=== PATIENT | female | born 1995 | race Caucasian/White ===

== ENCOUNTER 2018-05-22 16:19 | Inpatient (IN) | payer OTHER ==
--- NOTE | 2018-05-22 09:52 | PDOC.LDHP ---
Labor and Delivery H&P Chief complaint: scheduled induction HPI: 23 yo @ 40w2d by 10 week CRL who presents for EIOL. Rh neg, Tobacco use in early , Antepartum course otherwise benign. Current gestational age (weeks): 40 Due date: 05/20/18 Dating criteria: first trimester ultrasound Grav: 5 Para: 2 OB History Details: 2 term SVDs, 2 SABs Current complications: none Abnormal US findings: Yes Past Medical History: Denies Current medications: pre-ricarda vitamins Previous surgical history: none Allergies/Adverse Reactions: Allergies Allergy/AdvReac Type Severity Reaction Status Date / Time No Known Allergies Allergy Verified 05/22/18 23:28 Social history: none - Physical Exam Vital signs reviewed and normal: yes General: NAD Heart: RRR Lungs: nonlabored breathing Abdomen: gravid Extremeties: no edema FHT: category 1 (130s, mod patsy, +accels, no decels) [place] contractions every: q3-5 min - Vaginal Exam cm dilated: 3 (cephalic, AROM clear ) Effacement: 50% Station: -2 - OB Labs Blood type: A RH: negative Antibody Screen: negative HIV: negative RPR: negative HEPSAg: negative 1 hour GCT: negative GBS: negative Urine drug screen: not done Rubella: immune - Assessment 40w2d IUP EIOL - Plan Plan: admit to L&D, cervical ripening (s/p cytotec), informed consent obtained, anesthesia consult for pain management -: Start pitocin for IOL
[2018-05-22] MEDS ORDERED: HYDROcodone/Acetaminophen 5/325 mg Tablet PO PRN (22:39)
[2018-05-22] MEDS ORDERED: Butorphanol Tartrate 1 MG/ML VIAL SLOW IVP PRN (22:39)
[2018-05-22] MEDS ORDERED: Lidocaine 1% (PF) 30 ML VIAL SC PRN (22:39)
[2018-05-22] MEDS ORDERED: Misoprostol 200 MCG TAB PR PRN (22:39)
[2018-05-22] MEDS ORDERED: Methylergonovine 0.2 MG/ML VIAL IM PRN (22:39)
[2018-05-22] MEDS ORDERED: Diphenoxylate HCl/Atropine Tablet PO PRN (22:39)
[2018-05-22] MEDS ORDERED: Promethazine HCl 25 MG/ML VIAL IM PRN (22:39)
[2018-05-22] MEDS ORDERED: Ondansetron HCl/PF 4 MG/2 ML Vial IVP PRN (22:39)
[2018-05-22] MEDS ORDERED: Ibuprofen 800 MG TAB PO PRN (22:39)
[2018-05-22] MEDS ORDERED: Carboprost 250 MCG/ML AMP IM PRN (22:39)
[2018-05-22] MEDS ORDERED: NS / Oxytocin 40 units/1000ml 1,000 ML IV PRN (22:39)
[2018-05-22 23:37] VITALS: BMI 40.7
[2018-05-22] MEDS: Lactated Ringer's 1,000 ML IV SCH (23:46)
[2018-05-23 00:08] LABS: Hemoglobin 11.7 g/dL (12.0-16.0); Mean Corpuscular HGB CONC 32.8 g/dL (32.0-36.0); Mean Corpuscular Hemoglobin 30.5 pg (27.0-31.0); Mean Platelet Volume 7.6 fL (7.4-10.4); Platelet Count 237 thou/uL (130-400); RBC Distribution Width 12.7 % (11.5-14.5); Red Blood Cell (RBC) Count 3.83 mill/uL (4.20-5.40); White Blood Cell (WBC) Count 12.1 thou/uL (4.8-10.8)
[2018-05-23 00:49] LABS: HIV (1/2) Antibody/Antigen Non-Reactive (NonReactive); HIV 1/2 INDEX 0.08 S/CO (<1.00); Hep B Surf Ag Non-Reactive S/CO (NonReactive); Syphilis Antibody Nonreactive (Nonreactive); Syphilis Antibody Index 0.03 S/CO (<1.00 Non-Reactive)
[2018-05-23] MEDS: Misoprostol 100 MCG TAB VAG SCH ×2 (03:12)
[2018-05-23] MEDS: Acetaminophen 500 MG TAB PO PRN (03:14)
[2018-05-23] MEDS ORDERED: NS w/ Oxytocin 10 units 500 ML IV SCH (06:00)
[2018-05-23] MEDS ORDERED: DISCONTINUE ALL PREVIOUS NARCOTICS FS SCH (10:15)
[2018-05-23] MEDS ORDERED: Bupivacaine 0.5% 20 ML, fentaNYL Citrate/PF 400 MCG in Sodium Chloride 0.9% 72 ML EPIDURAL SCH (10:15)
[2018-05-23] MEDS ORDERED: Bupivacaine 0.5% 10 ML VIAL ONE (11:04)
[2018-05-23] MEDS ORDERED: Fentanyl 100 MCG/2 ML VIAL ONE (11:04)
[2018-05-23] MEDS: Lactated Ringer's 1,000 ML IV SCH ×2 (11:05→11:06)
[2018-05-23] MEDS ORDERED: Eucerin (Mineral Oil/Petrolatum,White) 30 gm Jar TOP PRN (11:55)
[2018-05-23] MEDS ORDERED: Promethazine HCl 25 MG/ML VIAL IM PRN (11:55)
[2018-05-23] MEDS ORDERED: Naloxone HCl 0.4 mg/ml Vial IVP PRN ×2 (11:55)
[2018-05-23] MEDS ORDERED: ePHEDrine/0.9% NaCl/PF SYRINGE 50 mg/10 ml SLOW IVP PRN (11:55)
[2018-05-23] MEDS ORDERED: Ondansetron HCl/PF 4 MG/2 ML Vial IVP PRN (11:55)
[2018-05-23] MEDS ORDERED: Lactated Ringer's 500 ML IV PRN (11:55)
[2018-05-23] MEDS ORDERED: Acetaminophen 325 MG TAB PO PRN (11:55)
[2018-05-23] MEDS ORDERED: diphenhydrAMINE 50 MG/ML VIAL IVP PRN (11:55)
[2018-05-23] MEDS ORDERED: Bupivacaine 0.25% 10 ML VIAL FS ONE (11:56)
[2018-05-23] MEDS ORDERED: Fentanyl 100 MCG/2 ML VIAL I-THECAL ONE (11:56)
[2018-05-23] MEDS ORDERED: Communication Order-Pharmacy FS SCH (12:00)
[2018-05-23] MEDS ORDERED: fentaNYL Citrate/PF 400 MCG, Bupivacaine 0.5% 20 ML in Sodium Chloride 0.9% 72 ML EPIDURAL SCH (12:00)
--- NOTE | 2018-05-23 14:51 | PDOC.OPDEL ---
OB Operative/Delivery Note Delivery Dr/Surgeon: Angelina Foley DO Pre-Delivery Diagnosis: elective induction Procedure/Post Delivery Dx: spontaneous vaginal delivery Weeks gestation: 40 Anesthesia: epidural - Findings A Sex: male - 1 min: 9 - 5 min: 10 - Additional Findings/Plan Placenta delivered: spontaneous Repaired Obstetrical Laceration: none Estimated blood loss: QBL 152 cc Compilations/Other Findings: in cephalic presentation, JUSTIN position Normal appearing placenta Clear AF Post delivery plan: routine recovery
[2018-05-23] MEDS ORDERED: Benzocaine/Menthol 20-0.5% 60 ML CAN TOP PRN (14:59)
[2018-05-23] MEDS ORDERED: Bisacodyl 10 MG SUPP PR PRN (14:59)
[2018-05-23] MEDS ORDERED: Methylergonovine 0.2 MG/ML VIAL IM PRN (14:59)
[2018-05-23] MEDS ORDERED: Milk Of Magnesia 30 ML UDCUP PO PRN (14:59)
[2018-05-23] MEDS ORDERED: NS / Oxytocin 40 units/1000ml 1,000 ML IV SCH (15:00)
[2018-05-23] MEDS: Docusate Calcium (SURFAK) 240 MG CAP PO SCH (21:10)
[2018-05-23] MEDS: Ibuprofen 800 MG TAB PO SCH (21:11)
[2018-05-24] MEDS: Ibuprofen 800 MG TAB PO SCH ×3 (05:14→21:32)
[2018-05-24 06:07] LABS: Hemoglobin 11.4 g/dL (12.0-16.0); Mean Corpuscular HGB CONC 32.4 g/dL (32.0-36.0); Mean Corpuscular Hemoglobin 30.5 pg (27.0-31.0); Mean Corpuscular Volume 94.1 fL (78.0-98.0); Mean Platelet Volume 7.7 fL (7.4-10.4); Platelet Count 211 thou/uL (130-400); RBC Distribution Width 12.7 % (11.5-14.5); Red Blood Cell (RBC) Count 3.75 mill/uL (4.20-5.40); White Blood Cell (WBC) Count 11.6 thou/uL (4.8-10.8)
[2018-05-24] MEDS: Docusate Calcium (SURFAK) 240 MG CAP PO SCH ×5 (09:09→21:34)
[2018-05-24] MEDS: Acetaminophen 500 MG TAB PO PRN ×2 (11:34→17:10)
--- NOTE | 2018-05-24 12:01 | DIS ---
DATE OF ADMISSION: 05/22/2018 DATE OF DISCHARGE: 05/24/2018 ADMITTING DIAGNOSIS: Elective induction at term. DISCHARGE DIAGNOSIS: Elective induction at term. PROCEDURE: Term spontaneous vaginal delivery. CONSULTATIONS: None. HOSPITAL COURSE: The patient is a 23-year-old G5, P2 female with an intrauterine at 40 wee ks and 2 days on admission who presented for elective induction of labor. Her induction resulted in a term spontaneous vaginal delivery on 05/23/2018. For complete details, please refer to the deliver y note. The patient's course has been uncomplicated. She reports this morning that she i s tolerating p.o., voiding on her own, having decreased lochia and good pain control. Postdelivery h emoglobin was 11.4, hematocrit 35.3. VITAL SIGNS: Vital signs this morning on day #1, blood pressure 108/62, temperature 98.2, pulse is 76, respiratory rate of 18. GENERAL: She appears to be in no acute distress. She is alert and oriented, cooperative and pleasan t to interact with. HEENT: Normocephalic, atraumatic. ABDOMEN: Fundus is firm. EXTREMITIES: Nontender, nonedematous. DISCHARGE INSTRUCTIONS: The patient will be discharged to home. The patient has instructions to follow up with Dr. Foley in 6 weeks or sooner if she experiences fev er, increasing pain or bleeding. She will be discharged home with ibuprofen. The patient's discharge will be held should the baby require continued inpatient care.
[2018-05-25] MEDS: Ibuprofen 800 MG TAB PO SCH (05:51)
[2018-05-25] MEDS: traMADol HCl 50 MG TAB PO PRN ×2 (05:52→13:09)
--- NOTE | 2018-05-25 06:14 | PDOC.EVN ---
Event Note - Event Note Event Note: PPD3@ DC held last PM 2* to Nursery request to keep baby. No c/o this AM. VSS AF Lochia small. Plan: DC after baby's circ, RTC 6 weeks, Precautions given.
[2018-05-25 08:10] VITALS: BP 107/69; TEMP 97.8
[2018-05-25] MEDS: Docusate Calcium (SURFAK) 240 MG CAP PO SCH (08:40)
[2018-05-25] MEDS: Acetaminophen 500 MG TAB PO PRN (11:27)
== END 2018-05-25 13:35 | disposition home or self-care (01) | DRG 775 ==
LOC: L&D 22:27 → 3SW 05-23 19:38
PROVIDERS: ADMIT Obstetrics & Gynecology; ATTEND Obstetrics & Gynecology
PROC: 10E0XZZ Delivery of Products of Conception, External Approach (ICD-10-PCS; principal; 2018-05-23)
PROC: 3E033VJ Introduction of Other Hormone into Peripheral Vein, Percutaneous Approach (ICD-10-PCS; 2018-05-23)
DX: O48.0 Post-term pregnancy (principal); Z3A.40 40 weeks gestation of pregnancy; Z37.0 Single live birth
CPT/HCPCS: 36415; 51702; 85027; 85461; 86780; 86850; 86870; 86900; 86901; 87340; 87389; 90384; 96372; J3010; J3490